=== PATIENT | female | born 1945 | race Caucasian/White ===

== ENCOUNTER 2019-08-05 10:34 | Emergency (ER) | payer OTHER ==
[~2019-08-05] VITALS: Ht 157.5 cm; Wt 56.2 kg
[2019-08-05] MEDS ORDERED: VENTOLIN HFA18 GM (10:52)
[2019-08-05] MEDS ORDERED: ALLER-TEC10 MG (10:52)
[2019-08-05] MEDS ORDERED: ALENDRONATE SOD10 MG (10:52)
[2019-08-05] MEDS ORDERED: NORVASC5 MG (10:52)
[2019-08-05] MEDS ORDERED: GLIMEPIRIDE2 MG (10:52)
[2019-08-05] MEDS ORDERED: MONTELUKAST SODI4 M1 (10:53)
[2019-08-05] MEDS ORDERED: ASPIR 8181 MG (10:53)
[2019-08-05] MEDS ORDERED: JANUVIA100 MG (10:53)
[2019-08-05] MEDS ORDERED: PEPCID20 MG (10:53)
[2019-08-05] MEDS ORDERED: COZAAR50 MG (10:53)
== END 2019-08-05 13:59 | disposition home or self-care (01) ==
LOC: ER 10:34
DX: B34.9 Viral infection, unspecified (principal)